=== PATIENT | male | born 1960 | race Caucasian/White ===

== ENCOUNTER → 2021-03-05 15:33 | Outpatient (CLI) | payer OTHER, SELFPAY ==
--- NOTE | 2021-03-05 | DI.CT.S_ITS ---
PROCEDURE: CT CERVICAL SPINE WO CON INDICATIONS: Cervicalgia TECHNIQUE: Noncontrast 3 mm thick sections acquired from the skull base to the T4 level. Sagittal and coronal reformats were then constructed. For radiation dose reduction, the following was used: automated exposure control, adjustment of mA and/or kV according to patient size. COMPARISON: [facility], CR, XR CERVICAL SPINE 2 OR 3 VIEWS, 06/13/2018, 8:38. [facility], CR, SPINE CERVICAL 2 OR 3VW, 03/11/2015, 9:30. [facility], MR, CERVICAL SPINE W&W/O CONTRAST, 01/18/2009, 19:28. FINDINGS: Image quality: Excellent. Bones: No fractures or dislocations. Visualized superior ribs are intact. Postoperative changes are seen, with an anterior cervical spine fusion plate at the C5 through C7 levels. The fusion plate appears well seated. Disc spacers are seen at C5-C6 and C6-C7. No findings of hardware failure or hardware loosening are seen. There is a cervical spine stimulator seen posteriorly with the tips extending to the C2-C3 level. There is at least moderate disc space narrowing seen at C3-C4, C4-C5, and C6-C7. Degenerative changes are seen within the visualized superior thoracic spine. Soft tissues: Prevertebral soft tissues are normal in thickness. No paravertebral hematomas. No apical pneumothoraces. IMPRESSION: Unremarkable postoperative changes. Underlying relatively prominent degenerative changes are seen. Dictated by: Romaine David M.D. on 03/05/2021 at 15:33 Approved by: Romaine David M.D. on 03/05/2021 at 15:35
== END ==
PROVIDERS: PCP Family Medicine; Referring Provider Acupuncturist; Visit Provider Acupuncturist
DX: M54.2 Cervicalgia (principal); M48.02 Spinal stenosis, cervical region; M47.814 Spondylosis without myelopathy or radiculopathy, thoracic region; Z96.82 Presence of neurostimulator; Z98.1 Arthrodesis status
CPT/HCPCS: 72125